=== PATIENT | female | born 1960 | race Caucasian/White ===

== ENCOUNTER 2019-03-29 04:21 | Inpatient (IN) | payer MEDICAID ==
[2019-03-29] VITALS (12 sets, daily range): BP systolic 100–115; BP diastolic 50–77
[~2019-03-29] VITALS: Ht 170.2 cm; Wt 79.3 kg
[2019-03-29] MEDS ORDERED: potassium Cl 40 mEq/NS 500ml IV ONE (04:50)
[2019-03-29] MEDS ORDERED: normal saline 1000ML IV soln IVB ONE ×2 (04:50→06:10)
--- NOTE | 2019-03-29 04:50 | NUR ---
CHEST X RAY COMPLETE
--- NOTE | 2019-03-29 04:50 | NUR ---
PT POTASSIUM LEVEL AT [facility] WAS AT 1. 9 .PT WAS SUPPOSE TO RECIEVE 4 K MENDOZA PRIOR TO TRANSPORT, BUT ONLY 2 WERE GIVEN . UPON ARRIVAL PT HAD ALOC. I STAT WAS PERFORMED FOR INTITAL POTASSIUM VALUE. RESULTS OF POTASSIUM LEVEL WAS ,2.[address] HARDWICK AWARE . PT CURRENTLY ON TLEMENTRY IN [facility]. HR 76 RR 19 UNLABORED, BP 103/56
[2019-03-29 04:53] LABS: BASOPHILS % (AUTO) 0.1 % (0-1); EOSINOPHILS % (AUTO) 0 % (0-6); HEMATOCRIT 37.3 % (35.0-45.0); HEMOGLOBIN 12.7 g/dl (12.0-16.0); LYMPHOCYTES # (AUTO) 1.1 X10'3 (1.1-4.8); LYMPHOCYTES % (AUTO) 5.4 % (21-51); MEAN CORPUSCULAR HEMOGLOBIN 27.8 PG (27.0-31.0); MEAN CORPUSCULAR HGB CONC 34.2 g/dL (33.0-36.5); MEAN CORPUSCULAR VOLUME 81.5 FL (78-98); MEAN PLATELET VOLUME 7.3 FL (7.4-10.4); MONOCYTES # (AUTO) 1.2 X10'3 (0-0.9); MONOCYTES % (AUTO) 5.6 % (2-12); NEUTROPHILS # (AUTO) 18.4 X10'3 (1.8-7.7); NEUTROPHILS % (AUTO) 88.9 % (42-75); PLATELET COUNT 251 X10'3 (140-440); RED BLOOD COUNT 4.57 X10'6 (4.20-5.60); RED CELL DISTRIBUTION WIDTH 15.8 % (11.5-14.5); WHITE BLOOD COUNT 20.7 X10'3 (4.5-11.0)
[2019-03-29 05:14] LABS: ALANINE AMINOTRANSFERASE 190 U/L (12-78); ALBUMIN 2.3 G/DL (3.4-5.0); ALKALINE PHOSPHATASE 216 IU/L (46-116); ASPARTATE AMINO TRANSFERASE 161 U/L (10-37); BILIRUBIN,TOTAL 7.8 MG/DL (0.1-1.0); BLOOD UREA NITROGEN 11 MG/DL (7-18); BUN/CREATININE RATIO 14.7 (6.6-38.0); CALCIUM 7.6 MG/DL (8.5-10.1); CREATININE 0.75 MG/DL (0.40-0.90); TROPONIN I < 0.04 NG/ML (0.0-0.05); eGFR 80 ML/MIN
[2019-03-29] MEDS: potassium Cl 10 mEq/100mL bag IV SCH ×4 (05:23→06:56)
[2019-03-29 05:33] LABS: PARTIAL THROMBOPLASTIN TIME 29 SECONDS (22-32)
[2019-03-29 05:38] LABS: ALBUMIN/GLOBULIN RATIO 0.5 (1.1-1.5); ANION GAP 23 (8-16); CHLORIDE 101 MMOL/L (99-107); GLUCOSE 81 MG/DL (70-104); SODIUM 142 MMOL/L (135-145); TOTAL PROTEIN 7.1 G/DL (6.4-8.2)
[2019-03-29] MEDS ORDERED: HYDR-3972 PO (05:38)
[2019-03-29] MEDS ORDERED: METH-603 PO (05:40)
[2019-03-29] MEDS ORDERED: NALO4SPR (05:40)
[2019-03-29] MEDS ORDERED: METO-292 PO (05:42)
[2019-03-29] MEDS ORDERED: AMIT25TA9 PO (05:42)
[2019-03-29 05:44] LABS: POTASSIUM 1.5 MMOL/L (3.5-5.1)
[2019-03-29] MEDS ORDERED: VENL150T3 PO (05:47)
[2019-03-29] MEDS ORDERED: PANT-47 PO (05:47)
[2019-03-29] MEDS ORDERED: ATOR20TA PO (05:47)
[2019-03-29] MEDS ORDERED: EST1T PO (05:47)
[2019-03-29] MEDS ORDERED: OXYB5TAB16 PO (05:47)
--- NOTE | 2019-03-29 05:49 | NUR ---
Spoke to pharmacist Natasha about patient's potassium level and how much potassium can be given through a PIV. She states that the patient can get two 10meq potassium in 100ml bags at the same time if given in 2 seperate PIVs on seperate sides of the body.
--- NOTE | 2019-03-29 06:14 | NUR ---
PT SLEEPING UNLABORED ON HER BACK ALL VSS IV SITES (3) TO UPPER ARMS / BILATERLY PATENT WITHOUT INCIDENT. MD GONZALEZ AWARE OF CRITICAL LAB VALUES.
--- NOTE | 2019-03-29 06:17 | NUR ---
PT ROOMMATE IS SHABANA @ [phone] GIVEN THIS CONTACT BY [facility]
--- NOTE | 2019-03-29 06:30 | NUR ---
BEDSIDE REPORT FROM ELIZABETH TELLO. PATIENT DOZING AND LETHARGIC. AROUSED TO VERBAL STIMULI. PATIENT ORIENTED X 1. UNABLE TO ANSWER QUESTIONS APPROPRIATELY. IV FLUIDS INFUSING WELL. VSS.
[2019-03-29 06:46] LABS: ISTAT ANION GAP 16 (8-12); ISTAT BUN 10 mg/dL (6-19); ISTAT CL 108 mmol/L (99-107); ISTAT CREATININE 0.6 mg/dL (0.6-1.1); ISTAT GLUCOSE 86 mg/dL (70-104); ISTAT HGB 12.9 g/dl (12.0-16.0); ISTAT Hct 38 %PCV (35-48); ISTAT NA 141 mmol/L (135-145); ISTAT TOTAL CO2 17 mmol/L (24-32); ISTAT eGFR > 90 ML/MIN; POC BUN/CREATININE RATIO 16.7 (6.6-38.0)
[2019-03-29 06:58] LABS: ISTAT K < 2.0 mmol/L (3.5-5.1)
[2019-03-29] MEDS ORDERED: magnesium 2GM in 50ml NS 50 ML IV ONE (07:10)
--- NOTE | 2019-03-29 07:31 | NUR ---
Guerrero cath inserted per MD order using 18Fr and 10cc balloon by student nurse with staff supervision.
[2019-03-29 07:47] LABS: CLARITY,URINE SLIGHTLY CLOUDY (Clear); COLOR,URINE YELLOW (Yellow); GLUCOSE, URINE NEGATIVE (Neg); KETONES,URINE NEGATIVE (Neg); LEUKOCYTE ESTERASE ,URINE SMALL (Neg); NITRITES, URINE POSITIVE (Neg); OCCULT BLOOD,URINE TRACE-INTACT (Neg); PH,URINE 6.5 (4.8-8.0); PROTEIN,URINE NEGATIVE (Neg)
[2019-03-29 07:53] LABS: UA COLLECTION TYPE FOLEY CATH
[2019-03-29 07:55] LABS: BACTERIA,URINE 1+ /HPF (Neg); SQUAMOUS EPITHELIAL CELL,UR FEW /LPF (FEW); WBC CLUMPS,URINE MODERATE /HPF (NEGATIVE); WBC,URINE TNTC /HPF (0-4)
[2019-03-29] MEDS ORDERED: acetaminophen 325mg tablet PO PRN ×2 (09:20)
[2019-03-29] MEDS ORDERED: ondansetron/PF 4mg/2ml inj IV PRN (09:20)
[2019-03-29] MEDS ORDERED: potassium Cl 20 mEq SR tablet PO PRN ×2 (09:20)
[2019-03-29] MEDS ORDERED: potassium CL 10mEq/100ml bag 100 ML IV PRN ×2 (09:20)
[2019-03-29] MEDS ORDERED: morphine 2 MG/ML inj. syringe IV PRN (09:20)
[2019-03-29] MEDS ORDERED: magnesium hydroxide 30ml (MOM) UD suspension PO PRN (09:20)
[2019-03-29] MEDS: normal saline 1000ml 1,000 ML IV SCH ×2 (10:32→17:15)
[2019-03-29 11:00] LABS: MAGNESIUM 2.1 MG/DL (1.5-2.4)
[2019-03-29 11:11] LABS: POTASSIUM 1.7 MMOL/L (3.5-5.1)
--- NOTE | 2019-03-29 11:20 | NUR ---
Received report from Derek.
--- NOTE | 2019-03-29 12:09 | NUR ---
Patient received from ER to room 2044. Patient unable to answer most questions but repeats she wants to go home and she needs water. When given small sips of water she chokes. Toothe[place] offered. Dr. Ward arrives to instruct to get a PICC line. Paged PICC nurse twice now, no response.
[2019-03-29] MEDS: lactulose 20gm/30ml cup PO SCH ×2 (12:16→20:30)
[2019-03-29] MEDS: CefTRIAXone/D5W-Rocephin 1gm 50 ML IV SCH (12:17)
--- NOTE | 2019-03-29 12:27 | NUR ---
Left a message with Michelle, patients sister. No answer.
--- NOTE | 2019-03-29 12:35 | NUR ---
Patient's sister, Stephany contacted hospital, she informed me that her sister used to use IV and smoking heroin. Patient is not a drinker, she currently uses marijuana and cigarettes smoking.
[2019-03-29] MEDS: azithromycin/NS 500mg/250ml 250 ML IV SCH (13:02)
--- NOTE | 2019-03-29 13:54 | NUR ---
Informed Dr. 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 Also, informed him that Hepatitis A,B,C is a send up and that it will not go out until tomorrow.
[2019-03-29] MEDS: potassium Cl 20mEq/100mL bag 100 ML IV PRN ×4 (14:39→19:38)
[2019-03-29 15:01] LABS: OXYGEN SATURATION (MIXED VEN) 75.7 % (60-80); PO2 MIXED VENOUS (TEMP COR) 39.2 mmHg (35-46)
[2019-03-29] MEDS: POTASSIUM BICARBONATE/CIT AC 10 MEQ TABLET.EFF PO SCH (15:07)
--- NOTE | 2019-03-29 18:39 | NUR ---
Problems reprioritized. Patient report given, questions answered & plan of care reviewed with Vincent Garrett RN. Still need SCD's, 1 more bag of 20meQKin NS, re check potassium, needs regular diet tray.
[2019-03-29] MEDS: metoclopramide 10mg tablet PO SCH (19:37)
[2019-03-29] MEDS: rifaximin 550mg tablet PO SCH (19:37)
[2019-03-29] MEDS: methadone 10mg tablet PO SCH (19:37)
[2019-03-29] MEDS: heparin, porcine 5000 units/ml vial SQ SCH (19:38)
[2019-03-29] MEDS ORDERED: VENLAFAXINE HCL PO SCH (20:00)
[2019-03-30] VITALS (24 sets, daily range): BP systolic 97–134; BP diastolic 46–81
--- NOTE | 2019-03-30 | NUR ---
Patient insisted on getting up to the "toilet" to have a bowel movement. Patient would not wait for staff to assist and climbed out of bed. Both RN and Sitter were there to assist. Patient having trouble following instructions. Patient safely to the bedside commode. When getting patient back to bed patient unable to follow instructions to sit down on the bed. After a few minutes patient finally able to sit down on the bed. Assisted back into bed. Sitter at bedside.
[2019-03-30] MEDS: POTASSIUM BICARBONATE/CIT AC 10 MEQ TABLET.EFF PO SCH ×3 (00:56→16:33)
[2019-03-30 02:56] LABS: BASOPHILS % (AUTO) 0.1 % (0-1); EOSINOPHILS % (AUTO) 0.1 % (0-6); HEMATOCRIT 30.1 % (35.0-45.0); HEMOGLOBIN 10.2 g/dl (12.0-16.0); MEAN CORPUSCULAR HEMOGLOBIN 27.9 PG (27.0-31.0); MEAN CORPUSCULAR HGB CONC 33.9 g/dL (33.0-36.5); MEAN CORPUSCULAR VOLUME 82.3 FL (78-98); MEAN PLATELET VOLUME 7.4 FL (7.4-10.4); MONOCYTES # (AUTO) 0.9 X10'3 (0-0.9); MONOCYTES % (AUTO) 7.7 % (2-12); NEUTROPHILS # (AUTO) 8.8 X10'3 (1.8-7.7); NEUTROPHILS % (AUTO) 75.1 % (42-75); PLATELET COUNT 194 X10'3 (140-440); RED BLOOD COUNT 3.66 X10'6 (4.20-5.60); RED CELL DISTRIBUTION WIDTH 15.9 % (11.5-14.5); WHITE BLOOD COUNT 11.7 X10'3 (4.5-11.0)
[2019-03-30 03:16] LABS: ALANINE AMINOTRANSFERASE 141 U/L (12-78); ALBUMIN 1.7 G/DL (3.4-5.0); ALKALINE PHOSPHATASE 159 IU/L (46-116); ANION GAP 9 (8-16); ASPARTATE AMINO TRANSFERASE 136 U/L (10-37); BILIRUBIN,TOTAL 3.7 MG/DL (0.1-1.0); BLOOD UREA NITROGEN 11 MG/DL (7-18); BUN/CREATININE RATIO 12.4 (6.6-38.0); CALCIUM 6.9 MG/DL (8.5-10.1); CHLORIDE 112 MMOL/L (99-107); CREATININE 0.89 MG/DL (0.40-0.90); MAGNESIUM 1.7 MG/DL (1.5-2.4); SODIUM 141 MMOL/L (135-145); TOTAL CARBON DIOXIDE 19.6 MMOL/L (24-32); eGFR 65 ML/MIN
[2019-03-30 03:23] LABS: ALBUMIN/GLOBULIN RATIO 0.4 (1.1-1.5); GLUCOSE 113 MG/DL (70-104); TOTAL PROTEIN 5.6 G/DL (6.4-8.2)
[2019-03-30 03:25] LABS: POTASSIUM 2.6 MMOL/L (3.5-5.1)
[2019-03-30] MEDS: normal saline 1000ml 1,000 ML IV SCH ×2 (03:29→21:09)
[2019-03-30] MEDS: potassium Cl 20mEq/100mL bag 100 ML IV PRN ×5 (03:30→11:19)
[2019-03-30] MEDS ORDERED: sodium phosphate inj. 30 MMOL in dextrose 5%-water 250 ML IV ONE (03:35)
[2019-03-30] MEDS: pantoprazole 40mg Tablet.DR PO SCH (08:56)
[2019-03-30] MEDS: rifaximin 550mg tablet PO SCH ×2 (08:57→21:10)
[2019-03-30] MEDS: atorvastatin 20mg tablet PO SCH (08:57)
[2019-03-30] MEDS: venlafaxine XR 75mg capsule (Q24H) PO SCH ×2 (08:57→21:11)
[2019-03-30] MEDS: oxybutynin 5mg tablet PO SCH (08:58)
[2019-03-30] MEDS: metoclopramide 10mg tablet PO SCH ×2 (08:58→21:10)
[2019-03-30] MEDS: CefTRIAXone/D5W-Rocephin 1gm 50 ML IV SCH (08:58)
[2019-03-30] MEDS: azithromycin/NS 500mg/250ml 250 ML IV SCH (08:58)
[2019-03-30] MEDS: lactulose 20gm/30ml cup PO SCH ×3 (08:59→21:11)
[2019-03-30] MEDS: amitriptyline 25mg tablet PO SCH (08:59)
[2019-03-30] MEDS: estradiol 1mg tablet PO SCH (08:59)
[2019-03-30] MEDS: methadone 10mg tablet PO SCH ×2 (08:59→21:10)
[2019-03-30] MEDS: heparin, porcine 5000 units/ml vial SQ SCH ×2 (09:04→21:11)
[2019-03-30 11:11] LABS: ALBUMIN 1.8 G/DL (3.4-5.0); ANION GAP 13 (8-16); BLOOD UREA NITROGEN 8 MG/DL (7-18); BUN/CREATININE RATIO 9.4 (6.6-38.0); CALCIUM 6.4 MG/DL (8.5-10.1); CHLORIDE 107 MMOL/L (99-107); CREATININE 0.85 MG/DL (0.40-0.90); GLUCOSE 173 MG/DL (70-104); SODIUM 137 MMOL/L (135-145); TOTAL CARBON DIOXIDE 16.6 MMOL/L (24-32); eGFR 69 ML/MIN
[2019-03-30 11:15] LABS: POTASSIUM 2.7 MMOL/L (3.5-5.1)
--- NOTE | 2019-03-30 11:29 | NUR ---
Malnutrition consult, patient admitted with ALOC, UTI. Low potassium 2.7 and phosphorus 1 L, aware and is receiving replacement. Patient reports unsure of any recent weight loss. No edema. No prior admission, unable to obtain weight history from patient d/t her confusion. Appears to have good appetite, ate 75% of dinner. Observed patient sitting in bed, appears well nourished. no malnutrition at this time. Will continue to follow. Addendum: 03/30/19 at [address] Amended: Links added.
--- NOTE | 2019-03-30 18:50 | NUR ---
Patient in room ICU 2044. I have received report from ELIZABETH Najera and had the opportunity to ask questions and assume patient care. Patient attempting to get out of bed with rails up. Bed alarm is set. Sitter requested. Patient is oriented to person only
--- NOTE | 2019-03-30 21:00 | NUR ---
[id number]: Patient becoming more agitated and resistant to care. Patient not making sense stating " I need to go to the hotel." " I need to go to [employer]." " I need to go to the doctor." Patient attempting to get out of bed and resisting staff efforts to keep her safe. Patient is not very sturdy on her feet and is a fall risk. Patient proceeded to pull at her gown and her lines. greige goods marker, tech and sitter and RN at bedside. Patient becoming combative, attempting to kick and swing at staff. June BEATRICE Campbell notified of change in patients condition. Order for Ativan 1 mg entered by Treasure Campbell NP. Patient continued to fight with staff and remained a danger to herself. Patient appeared generally uncomfortable. Pain medication Morphine administered as ordered for pain. By 2199 patient able to be assisted back to bed. Patient sleeping soundly. Sitter remained at bedside will continue to monitor patient.
[2019-03-30] MEDS: lactobacillus rhamnosus 10,000 MMU CELLS/CAPSULE PO SCH (21:09)
[2019-03-30] MEDS ORDERED: LORazepam 2 mg/ml vial IV ONE (21:15)
[2019-03-30] MEDS: morphine 4 MG/ML inj SYRINge IV PRN (21:38)
[2019-03-31] VITALS (22 sets, daily range): BP systolic 98–137; BP diastolic 61–85
--- NOTE | 2019-03-31 | NUR ---
Patient able to awaken to verbal stimuli. Patient opens her eyes but does not answer questions. Patient follows simple commands to raise hands and cough to clear her throat. Patient dozes off quickly. Patient is unable to drink her potassium replacement. June BEATRICE Campbell notified of patients condition. labs drawn and sent to check potassium and ammonia levels.
[2019-03-31] MEDS: POTASSIUM BICARBONATE/CIT AC 10 MEQ TABLET.EFF PO SCH ×4 (00:57→16:28)
[2019-03-31 01:40] LABS: BASOPHILS % (AUTO) 0.1 % (0-1); EOSINOPHILS % (AUTO) 0 % (0-6); HEMATOCRIT 31.9 % (35.0-45.0); HEMOGLOBIN 10.8 g/dl (12.0-16.0); LYMPHOCYTES # (AUTO) 2.3 X10'3 (1.1-4.8); LYMPHOCYTES % (AUTO) 19.7 % (21-51); MEAN CORPUSCULAR HEMOGLOBIN 27.5 PG (27.0-31.0); MEAN CORPUSCULAR HGB CONC 33.7 g/dL (33.0-36.5); MEAN CORPUSCULAR VOLUME 81.6 FL (78-98); MEAN PLATELET VOLUME 7.3 FL (7.4-10.4); MONOCYTES # (AUTO) 0.9 X10'3 (0-0.9); MONOCYTES % (AUTO) 7.6 % (2-12); NEUTROPHILS # (AUTO) 8.7 X10'3 (1.8-7.7); NEUTROPHILS % (AUTO) 72.6 % (42-75); PLATELET COUNT 225 X10'3 (140-440); RED BLOOD COUNT 3.91 X10'6 (4.20-5.60); RED CELL DISTRIBUTION WIDTH 16.2 % (11.5-14.5); WHITE BLOOD COUNT 11.9 X10'3 (4.5-11.0)
[2019-03-31 01:58] LABS: ALANINE AMINOTRANSFERASE 165 U/L (12-78); ALBUMIN 1.8 G/DL (3.4-5.0); ALKALINE PHOSPHATASE 176 IU/L (46-116); ANION GAP 10 (8-16); ASPARTATE AMINO TRANSFERASE 192 U/L (10-37); BILIRUBIN,TOTAL 3.6 MG/DL (0.1-1.0); BLOOD UREA NITROGEN 7 MG/DL (7-18); BUN/CREATININE RATIO 9.1 (6.6-38.0); CALCIUM 7.3 MG/DL (8.5-10.1); CHLORIDE 107 MMOL/L (99-107); CREATININE 0.77 MG/DL (0.40-0.90); MAGNESIUM 1.6 MG/DL (1.5-2.4); POTASSIUM 3.6 MMOL/L (3.5-5.1); SODIUM 137 MMOL/L (135-145); TOTAL CARBON DIOXIDE 19.7 MMOL/L (24-32); eGFR 77 ML/MIN
[2019-03-31 02:31] LABS: ALBUMIN/GLOBULIN RATIO 0.4 (1.1-1.5); GLUCOSE 86 MG/DL (70-104); PHOSPHORUS 1.6 MG/DL (2.3-4.5); TOTAL PROTEIN 6.1 G/DL (6.4-8.2)
[2019-03-31] MEDS ORDERED: potassium Cl 20mEq/100mL bag 100 ML IV ONE (02:55)
--- NOTE | 2019-03-31 03:00 | NUR ---
June BEATRICE Campbell notified of potassium level of 3.6. Order to be placed for potassium replacement since patient was unable to take oral dose of potassium.
[2019-03-31] MEDS: normal saline 1000ml 1,000 ML IV SCH ×2 (03:15→14:22)
--- NOTE | 2019-03-31 06:00 | NUR ---
[id number]: Patient able to awaken easily to verbal stimuli. Patient able to state first name and follow commands to roll in bed for a bed change.
--- NOTE | 2019-03-31 06:30 | NUR ---
Problems reprioritized. Patient report given, questions answered & plan of care reviewed with ELIZABETH Najera.
[2019-03-31] MEDS: potassium Cl 20mEq/100mL bag 100 ML IV PRN ×3 (06:48→10:31)
[2019-03-31] MEDS: methadone 10mg tablet PO SCH ×3 (08:00→20:21)
[2019-03-31] MEDS: metoclopramide 10mg tablet PO SCH ×3 (08:00→20:21)
[2019-03-31] MEDS: venlafaxine XR 75mg capsule (Q24H) PO SCH ×3 (08:00→20:21)
[2019-03-31] MEDS: rifaximin 550mg tablet PO SCH ×3 (08:00→23:35)
[2019-03-31] MEDS: oxybutynin 5mg tablet PO SCH ×2 (08:00→08:19)
[2019-03-31] MEDS: estradiol 1mg tablet PO SCH ×2 (08:00→08:20)
[2019-03-31] MEDS: pantoprazole 40mg Tablet.DR PO SCH ×2 (08:00→08:21)
[2019-03-31] MEDS: amitriptyline 25mg tablet PO SCH ×2 (08:00→08:19)
[2019-03-31] MEDS: lactobacillus rhamnosus 10,000 MMU CELLS/CAPSULE PO SCH ×3 (08:00→20:21)
[2019-03-31] MEDS: atorvastatin 20mg tablet PO SCH ×2 (08:00→08:19)
[2019-03-31] MEDS: CefTRIAXone/D5W-Rocephin 1gm 50 ML IV SCH (08:15)
[2019-03-31] MEDS: azithromycin/NS 500mg/250ml 250 ML IV SCH (08:19)
[2019-03-31] MEDS ORDERED: dextrose 50%-water 50ml dispensing syringe IV ONE ×2 (08:34→09:30)
[2019-03-31] MEDS ORDERED: cefepime 1GM in D5W 50mL 50 ML IV SCH (11:20)
[2019-03-31 11:26] LABS: HBSAG SCREEN Positive (Negative); HEP A AB, IGM Negative (Negative); HEPATITIS C ANTIBODY <0.1 s/co ratio (0.0-0.9)
[2019-03-31] MEDS: cefepime 1GM/NS ADD-VANTAGE 100 ML IV SCH ×2 (11:56→17:45)
[2019-03-31] MEDS: lactulose 20gm/30ml cup PO SCH ×2 (13:00→20:21)
[2019-03-31] MEDS ORDERED: ipratropium/albuterol 3ml nebule NEB PRN (15:00)
[2019-03-31] MEDS: ipratropium/albuterol 3ml nebule NEB SCH ×2 (15:00→20:34)
--- NOTE | 2019-03-31 15:31 | NUR ---
TF consult: Pending Corpak placement. Per MD notes pt not eating, somnolent, and still encephalopathic even with improved ammonia. Pt confused and A/O x 1 per physical assessment. Noted that pt documented with average 25% PO intake not meeting nutrient needs. TF recommendations calculated to meet 100% of patient's estimated nutrient needs once at goal rate. Per RN MD would like pt to continue NPO with TF as sole source of nutrition at this time. LBM 03/31. Will continue to follow. Recommendations: 1) Once Corpak placed and confirmed in appropriate location, continuous Jevity 1.2 with goal rate of 75 mL/hr to provide: total volume 1800 mL/day, 2160 kcal, 100 g protein, and 1453 mL water 2) Additional 200 mL water flush Q4H 3) Prealbumin q /; daily weights 4) Diet advancement as medically indicated to heart healthy Addendum: 03/31/19 at [address] Amended: Links added.
[2019-03-31] MEDS: heparin, porcine 5000 units/ml vial SQ SCH (20:21)
[2019-03-31] MEDS: HYDROcodone/acetaminophen 10/325mg tab PO PRN (23:36)
[2019-04-01] VITALS (17 sets, daily range): BP systolic 94–125; BP diastolic 62–84
[2019-04-01] MEDS: POTASSIUM BICARBONATE/CIT AC 10 MEQ TABLET.EFF PO SCH ×4 (00:23→23:45)
[2019-04-01] MEDS: cefepime 1GM/NS ADD-VANTAGE 100 ML IV SCH ×4 (00:23→23:45)
--- NOTE | 2019-04-01 01:00 | NUR ---
RN Note -MD Communication Called June aleksandar Campbell combative and climbing out of bed. Orders received.
[2019-04-01] MEDS ORDERED: ziprasidone IM 20mg inj **IM only IM ONE (01:05)
[2019-04-01] MEDS: ipratropium/albuterol 3ml nebule NEB SCH ×4 (02:15→21:10)
[2019-04-01 03:10] LABS: BASOPHILS % (AUTO) 0.1 % (0-1); EOSINOPHILS % (AUTO) 0 % (0-6); HEMOGLOBIN 10.5 g/dl (12.0-16.0); LYMPHOCYTES # (AUTO) 2.2 X10'3 (1.1-4.8); MEAN CORPUSCULAR HEMOGLOBIN 27.9 PG (27.0-31.0); MEAN CORPUSCULAR HGB CONC 33.7 g/dL (33.0-36.5); MEAN CORPUSCULAR VOLUME 82.7 FL (78-98); MEAN PLATELET VOLUME 7.9 FL (7.4-10.4); MONOCYTES # (AUTO) 0.6 X10'3 (0-0.9); MONOCYTES % (AUTO) 8.8 % (2-12); NEUTROPHILS # (AUTO) 4.5 X10'3 (1.8-7.7); NEUTROPHILS % (AUTO) 61.1 % (42-75); PLATELET COUNT 181 X10'3 (140-440); RED BLOOD COUNT 3.75 X10'6 (4.20-5.60); RED CELL DISTRIBUTION WIDTH 16.3 % (11.5-14.5); WHITE BLOOD COUNT 7.3 X10'3 (4.5-11.0)
[2019-04-01 03:29] LABS: ALANINE AMINOTRANSFERASE 162 U/L (12-78); ALBUMIN 1.8 G/DL (3.4-5.0); ALBUMIN/GLOBULIN RATIO 0.4 (1.1-1.5); ALKALINE PHOSPHATASE 163 IU/L (46-116); ANION GAP 8 (8-16); ASPARTATE AMINO TRANSFERASE 183 U/L (10-37); BILIRUBIN,TOTAL 2.9 MG/DL (0.1-1.0); BLOOD UREA NITROGEN 6 MG/DL (7-18); BUN/CREATININE RATIO 8.3 (6.6-38.0); CALCIUM 7.2 MG/DL (8.5-10.1); CHLORIDE 111 MMOL/L (99-107); CREATININE 0.72 MG/DL (0.40-0.90); MAGNESIUM 1.5 MG/DL (1.5-2.4); PHOSPHORUS 2.7 MG/DL (2.3-4.5); SODIUM 138 MMOL/L (135-145); TOTAL CARBON DIOXIDE 18.7 MMOL/L (24-32); TOTAL PROTEIN 6.2 G/DL (6.4-8.2); eGFR 83 ML/MIN
[2019-04-01 03:40] LABS: GLUCOSE 74 MG/DL (70-104)
[2019-04-01] MEDS: pantoprazole 40mg Tablet.DR PO SCH (10:56)
[2019-04-01] MEDS: lactulose 20gm/30ml cup PO SCH ×3 (10:56→22:17)
[2019-04-01] MEDS: atorvastatin 20mg tablet PO SCH (10:56)
[2019-04-01] MEDS: amitriptyline 25mg tablet PO SCH (10:56)
[2019-04-01] MEDS: metoclopramide 10mg tablet PO SCH ×2 (11:02→19:31)
[2019-04-01] MEDS: methadone 10mg tablet PO SCH ×2 (11:02→19:31)
[2019-04-01] MEDS: venlafaxine XR 75mg capsule (Q24H) PO SCH ×2 (11:18→22:17)
[2019-04-01] MEDS: lactobacillus rhamnosus 10,000 MMU CELLS/CAPSULE PO SCH ×2 (11:18→19:31)
[2019-04-01] MEDS: oxybutynin 5mg tablet PO SCH (11:19)
[2019-04-01] MEDS: normal saline 1000ml 1,000 ML IV SCH ×2 (11:20→19:41)
--- NOTE | 2019-04-01 11:42 | NUR ---
reassessment: Pt immediately pulled corpak and has been advanced to pureed diet per RN. No BSS at this time; RD recommends SP BSS for proper recs. Pt AOx1 falls asleep w/ food in mouth and requires feeder per RN. PO 25% first meals improved to 100% breakfast today per RN. LBM 03/31. Will monitor for SP diet recs and PO tolerance. Recommendations: 1) advancement diet per SP/MD to heart healthy 2) monitor for PO tolerance w/ feeder and subsequent ONS needs 3) routine bowel care 4) wt per rx Addendum: 04/01/19 at [address] Amended: Links added.
[2019-04-01] MEDS: heparin, porcine 5000 units/ml vial SQ SCH ×2 (11:53→19:32)
[2019-04-01] MEDS: estradiol 1mg tablet PO SCH (14:00)
--- NOTE | 2019-04-01 16:24 | NUR ---
Sister Michelle to visit: requests social professionals assistance at discharge. Current living situation is unacceptable to the family. Family will be in on Tuesday to speak to case management.
--- NOTE | 2019-04-01 17:51 | NUR ---
Patient in room CICU 2009. I have received report from Pushpa JOHNSON and had the opportunity to ask questions and assume patient care.
--- NOTE | 2019-04-01 18:05 | NUR ---
Patient received from CICU. Patient oriented to room and call light and sitter. Patient stable, fluids running.
--- NOTE | 2019-04-01 18:27 | NUR ---
Patient report given, questions answered & plan of care reviewed with Sarah JOHNSON. Patient stable at time of transfer of care.
[2019-04-01] MEDS: morphine 4 MG/ML inj SYRINge IV PRN (19:32)
--- NOTE | 2019-04-01 21:45 | NUR ---
Patient in room PCU 3019. I have received report from ELIZABETH Pan and had the opportunity to ask questions and assume patient care. Addendum: 04/01/19 at 2147 by Sarah Constantino RN Amended: Links added.
[2019-04-01] MEDS: HYDROcodone/acetaminophen 10/325mg tab PO PRN (22:18)
[2019-04-02 02:00] VITALS: BP 128/82
[2019-04-02] MEDS: ipratropium/albuterol 3ml nebule NEB SCH ×4 (02:38→20:41)
[2019-04-02 05:26] LABS: BASOPHILS % (AUTO) 0.1 % (0-1); EOSINOPHILS % (AUTO) 0.1 % (0-6); HEMATOCRIT 30.9 % (35.0-45.0); HEMOGLOBIN 10.6 g/dl (12.0-16.0); LYMPHOCYTES # (AUTO) 1.9 X10'3 (1.1-4.8); MEAN CORPUSCULAR HEMOGLOBIN 28.5 PG (27.0-31.0); MEAN CORPUSCULAR HGB CONC 34.4 g/dL (33.0-36.5); MEAN CORPUSCULAR VOLUME 82.8 FL (78-98); MEAN PLATELET VOLUME 8.1 FL (7.4-10.4); MONOCYTES # (AUTO) 0.8 X10'3 (0-0.9); MONOCYTES % (AUTO) 12.5 % (2-12); NEUTROPHILS # (AUTO) 3.7 X10'3 (1.8-7.7); NEUTROPHILS % (AUTO) 57.3 % (42-75); PLATELET COUNT 176 X10'3 (140-440); RED BLOOD COUNT 3.74 X10'6 (4.20-5.60); RED CELL DISTRIBUTION WIDTH 16.1 % (11.5-14.5); WHITE BLOOD COUNT 6.4 X10'3 (4.5-11.0)
[2019-04-02 05:55] LABS: ALANINE AMINOTRANSFERASE 179 U/L (12-78); ALBUMIN 1.9 G/DL (3.4-5.0); ALBUMIN/GLOBULIN RATIO 0.4 (1.1-1.5); ALKALINE PHOSPHATASE 171 IU/L (46-116); ANION GAP 9 (8-16); ASPARTATE AMINO TRANSFERASE 222 U/L (10-37); BILIRUBIN,TOTAL 3.2 MG/DL (0.1-1.0); BLOOD UREA NITROGEN 7 MG/DL (7-18); BUN/CREATININE RATIO 9.5 (6.6-38.0); CALCIUM 7.8 MG/DL (8.5-10.1); CHLORIDE 112 MMOL/L (99-107); CREATININE 0.74 MG/DL (0.40-0.90); MAGNESIUM 1.5 MG/DL (1.5-2.4); PHOSPHORUS 3.7 MG/DL (2.3-4.5); POTASSIUM 3.9 MMOL/L (3.5-5.1); SODIUM 142 MMOL/L (135-145); TOTAL CARBON DIOXIDE 21.4 MMOL/L (24-32); TOTAL PROTEIN 6.7 G/DL (6.4-8.2); eGFR 81 ML/MIN
[2019-04-02 06:00] VITALS: BP 119/76
--- NOTE | 2019-04-02 06:12 | NUR ---
Problems reprioritized. Patient report given, questions answered & plan of care reviewed with ELIZABETH Logan. Addendum: 04/02/19 at 0612 by Sarah Constantino RN Amended: Links added.
[2019-04-02 06:13] LABS: GLUCOSE 73 MG/DL (70-104)
--- NOTE | 2019-04-02 06:27 | NUR ---
Patient in room PCU 3019. I have received report from Serena JOHNSON and had the opportunity to ask questions and assume patient care.
[2019-04-02] MEDS: POTASSIUM BICARBONATE/CIT AC 10 MEQ TABLET.EFF PO SCH ×3 (08:00→23:52)
[2019-04-02] MEDS: lactulose 20gm/30ml cup PO SCH ×3 (08:28→20:22)
[2019-04-02] MEDS: amitriptyline 25mg tablet PO SCH (08:29)
[2019-04-02] MEDS: oxybutynin 5mg tablet PO SCH (08:29)
[2019-04-02] MEDS: methadone 10mg tablet PO SCH ×2 (08:29→20:22)
[2019-04-02] MEDS: pantoprazole 40mg Tablet.DR PO SCH (08:29)
[2019-04-02] MEDS: atorvastatin 20mg tablet PO SCH (08:29)
[2019-04-02] MEDS: heparin, porcine 5000 units/ml vial SQ SCH ×2 (08:29→20:22)
[2019-04-02] MEDS: lactobacillus rhamnosus 10,000 MMU CELLS/CAPSULE PO SCH ×2 (08:29→20:22)
[2019-04-02] MEDS: metoclopramide 10mg tablet PO SCH ×2 (08:30→20:22)
--- NOTE | 2019-04-02 09:11 | NUR ---
Patient report given, questions answered & plan of care reviewed with Dane JOHNSON. Patient stable at time of transfer of care.
--- NOTE | 2019-04-02 09:17 | NUR ---
[place]rient[place] documentation: I have reviewed and agree with all interventions, assessments performed and documented by Doreen JOHNSON. [place] Medication Administration: For this medication-pass time frame, all medication were reviewed, dispensed, administered and documented per hospital policy by Doreen JOHNSON.
[2019-04-02] MEDS: venlafaxine XR 75mg capsule (Q24H) PO SCH ×2 (10:45→20:22)
[2019-04-02 11:00] VITALS: BP 109/69
[2019-04-02] MEDS: cefepime 1GM/NS ADD-VANTAGE 100 ML IV SCH ×3 (11:04→23:52)
[2019-04-02] MEDS: estradiol 1mg tablet PO SCH (11:04)
[2019-04-02] MEDS ORDERED: potassium Cl 20 mEq SR tablet PO PRN (13:25)
[2019-04-02] MEDS: potassium Cl 20 mEq SR tablet PO PRN ×2 (14:08→17:51)
[2019-04-02 15:00] VITALS: BP 102/74
--- NOTE | 2019-04-02 15:57 | NUR ---
Orientee documentation and med administration: I have reviewed and agree with all interventions, assessments performed and documented by Jessica JOHNSON.
[2019-04-02] MEDS: normal saline 1000ml 1,000 ML IV SCH (16:08)
[2019-04-02 18:00] VITALS: BP 108/63
--- NOTE | 2019-04-02 18:30 | NUR ---
Patient in room PCU 3019. I have received report from ELIZABETH DÍAZ AND ELIZABETH CORDOBA and had the opportunity to ask questions and assume patient care.
--- NOTE | 2019-04-02 18:52 | NUR ---
Problems reprioritized. Patient report given, questions answered & plan of care reviewed with ELIZABETH Haddad.
[2019-04-02 22:00] VITALS: BP 106/73
[2019-04-03] MEDS: ipratropium/albuterol 3ml nebule NEB SCH ×4 (02:34→20:25)
[2019-04-03 03:16] VITALS: BP 116/73
[2019-04-03 05:45] LABS: BASOPHILS % (AUTO) 0.1 % (0-1); EOSINOPHILS % (AUTO) 0.2 % (0-6); HEMATOCRIT 28.2 % (35.0-45.0); HEMOGLOBIN 9.6 g/dl (12.0-16.0); LYMPHOCYTES # (AUTO) 1.5 X10'3 (1.1-4.8); LYMPHOCYTES % (AUTO) 30.8 % (21-51); MEAN CORPUSCULAR HEMOGLOBIN 28.3 PG (27.0-31.0); MEAN CORPUSCULAR HGB CONC 34.2 g/dL (33.0-36.5); MEAN CORPUSCULAR VOLUME 82.8 FL (78-98); MEAN PLATELET VOLUME 7.9 FL (7.4-10.4); MONOCYTES # (AUTO) 0.7 X10'3 (0-0.9); MONOCYTES % (AUTO) 13.5 % (2-12); NEUTROPHILS # (AUTO) 2.8 X10'3 (1.8-7.7); NEUTROPHILS % (AUTO) 55.4 % (42-75); PLATELET COUNT 142 X10'3 (140-440); RED CELL DISTRIBUTION WIDTH 16.1 % (11.5-14.5)
[2019-04-03 06:00] VITALS: BP 119/69
[2019-04-03 06:30] LABS: ALANINE AMINOTRANSFERASE 174 U/L (12-78); ALBUMIN 1.8 G/DL (3.4-5.0); ALBUMIN/GLOBULIN RATIO 0.4 (1.1-1.5); ALKALINE PHOSPHATASE 161 IU/L (46-116); ANION GAP 8 (8-16); ASPARTATE AMINO TRANSFERASE 215 U/L (10-37); BILIRUBIN,TOTAL 2.7 MG/DL (0.1-1.0); BLOOD UREA NITROGEN 6 MG/DL (7-18); CALCIUM 8.3 MG/DL (8.5-10.1); CHLORIDE 112 MMOL/L (99-107); CREATININE 0.67 MG/DL (0.40-0.90); MAGNESIUM 1.6 MG/DL (1.5-2.4); PHOSPHORUS 2.3 MG/DL (2.3-4.5); POTASSIUM 4.1 MMOL/L (3.5-5.1); SODIUM 142 MMOL/L (135-145); TOTAL CARBON DIOXIDE 22.3 MMOL/L (24-32); TOTAL PROTEIN 6.5 G/DL (6.4-8.2); eGFR > 90 ML/MIN
[2019-04-03 06:36] LABS: GLUCOSE 72 MG/DL (70-104)
--- NOTE | 2019-04-03 06:38 | NUR ---
Problems reprioritized. Patient report given, questions answered & plan of care reviewed with ELIZABETH ANTON.
[2019-04-03] MEDS: lactulose 20gm/30ml cup PO SCH ×3 (08:00→20:11)
[2019-04-03] MEDS: heparin, porcine 5000 units/ml vial SQ SCH ×2 (08:56→20:12)
[2019-04-03] MEDS: atorvastatin 20mg tablet PO SCH (08:56)
[2019-04-03] MEDS: lactobacillus rhamnosus 10,000 MMU CELLS/CAPSULE PO SCH ×2 (08:56→20:11)
[2019-04-03] MEDS: amitriptyline 25mg tablet PO SCH (08:56)
[2019-04-03] MEDS: oxybutynin 5mg tablet PO SCH (08:56)
[2019-04-03] MEDS: venlafaxine XR 75mg capsule (Q24H) PO SCH ×2 (08:56→20:10)
[2019-04-03] MEDS: pantoprazole 40mg Tablet.DR PO SCH (08:57)
[2019-04-03] MEDS: metoclopramide 10mg tablet PO SCH ×2 (08:57→20:10)
[2019-04-03] MEDS: methadone 10mg tablet PO SCH ×2 (08:57→20:10)
[2019-04-03] MEDS: estradiol 1mg tablet PO SCH (08:58)
[2019-04-03] MEDS: POTASSIUM BICARBONATE/CIT AC 10 MEQ TABLET.EFF PO SCH ×2 (08:59→16:36)
[2019-04-03] MEDS: cefepime 1GM/NS ADD-VANTAGE 100 ML IV SCH ×2 (09:01→16:36)
[2019-04-03 11:00] VITALS: BP 103/66
--- NOTE | 2019-04-03 11:56 | NUR ---
reassessment: Pt AOx1 frequently falling asleep per EMR. PO 25-50% pureed/thin liquids decreased from 100% first meal following pt pulling out corpak. Ensure pudding BIDBD and magic cup w/ lunches added to meals; dietary notified. [facility] 03/31. Will continue to monitor. Recommendations: 1) continue pureed/thin liquids per SP/MD 2) ensure pudding BIDBD and magic cup w/ lunches 3) routine bowel care 4) wt per rx Addendum: 04/03/19 at [address] Amended: Links added.
[2019-04-03 15:00] VITALS: BP 112/67
[2019-04-03 18:00] VITALS: BP 107/72
--- NOTE | 2019-04-03 18:42 | NUR ---
Problems reprioritized. Patient report given, questions answered & plan of care reviewed with ELIZABETH Joya and ELIZABETH Angulo.
[2019-04-03] MEDS: normal saline 1000ml 1,000 ML IV SCH (20:33)
[2019-04-03 22:00] VITALS: BP 90/56
[2019-04-04] MEDS: cefepime 1GM/NS ADD-VANTAGE 100 ML IV SCH ×4 (00:34→23:11)
[2019-04-04] MEDS: POTASSIUM BICARBONATE/CIT AC 10 MEQ TABLET.EFF PO SCH ×4 (00:41→23:12)
[2019-04-04 02:00] VITALS: BP 103/71
[2019-04-04] MEDS: ipratropium/albuterol 3ml nebule NEB SCH ×3 (03:00→13:59)
[2019-04-04 03:55] LABS: BASOPHILS % (AUTO) 0.1 % (0-1); EOSINOPHILS % (AUTO) 0 % (0-6); HEMOGLOBIN 9.6 g/dl (12.0-16.0); LYMPHOCYTES # (AUTO) 1.6 X10'3 (1.1-4.8); MEAN CORPUSCULAR HEMOGLOBIN 28.3 PG (27.0-31.0); MEAN CORPUSCULAR HGB CONC 34.2 g/dL (33.0-36.5); MEAN CORPUSCULAR VOLUME 82.7 FL (78-98); MEAN PLATELET VOLUME 7.9 FL (7.4-10.4); MONOCYTES # (AUTO) 0.7 X10'3 (0-0.9); MONOCYTES % (AUTO) 13.2 % (2-12); NEUTROPHILS % (AUTO) 55.7 % (42-75); PLATELET COUNT 142 X10'3 (140-440); RED BLOOD COUNT 3.39 X10'6 (4.20-5.60); RED CELL DISTRIBUTION WIDTH 16.4 % (11.5-14.5); WHITE BLOOD COUNT 5.3 X10'3 (4.5-11.0)
[2019-04-04 04:04] LABS: ALANINE AMINOTRANSFERASE 204 U/L (12-78); ALBUMIN 1.8 G/DL (3.4-5.0); ALBUMIN/GLOBULIN RATIO 0.4 (1.1-1.5); ALKALINE PHOSPHATASE 162 IU/L (46-116); ANION GAP 5 (8-16); ASPARTATE AMINO TRANSFERASE 277 U/L (10-37); BILIRUBIN,TOTAL 2.4 MG/DL (0.1-1.0); BLOOD UREA NITROGEN 5 MG/DL (7-18); BUN/CREATININE RATIO 7.4 (6.6-38.0); CALCIUM 7.7 MG/DL (8.5-10.1); CHLORIDE 105 MMOL/L (99-107); CREATININE 0.68 MG/DL (0.40-0.90); MAGNESIUM 1.3 MG/DL (1.5-2.4); PHOSPHORUS 2.8 MG/DL (2.3-4.5); POTASSIUM 4.2 MMOL/L (3.5-5.1); SODIUM 135 MMOL/L (135-145); TOTAL CARBON DIOXIDE 25.5 MMOL/L (24-32); TOTAL PROTEIN 6.6 G/DL (6.4-8.2); eGFR 89 ML/MIN
[2019-04-04 04:05] LABS: GLUCOSE 76 MG/DL (70-104)
--- NOTE | 2019-04-04 05:33 | NUR ---
Patient in room PCU 3019. I have received report from Janis JOHNSON and had the opportunity to ask questions and assume patient care.
[2019-04-04 06:00] VITALS: BP 96/60
--- NOTE | 2019-04-04 06:00 | NUR ---
[place] Medication Administration: For this medication-pass time frame, all medication were reviewed, dispensed, administered and documented per hospital policy by Adele JOHNSON. Orientee documentation: I have reviewed interventions, assessments performed and documented by Adele JOHNSON.
--- NOTE | 2019-04-04 06:15 | NUR ---
Problems reprioritized. Patient report given, questions answered & plan of care reviewed with Janis RN.
--- NOTE | 2019-04-04 06:23 | NUR ---
Patient in room PCU 3019. I have received report from ELIZABETH Joya and had the opportunity to ask questions and assume patient care. Pt is sleeping. Per noc shift, the pt was encephalopathic last night. Will continue lactulose, and will ask about a rectal tube. Will continue to monitor and assess.
[2019-04-04] MEDS: venlafaxine XR 75mg capsule (Q24H) PO SCH ×2 (08:56→20:38)
[2019-04-04] MEDS: lactulose 20gm/30ml cup PO SCH ×3 (08:56→20:38)
[2019-04-04] MEDS: atorvastatin 20mg tablet PO SCH (08:57)
[2019-04-04] MEDS: amitriptyline 25mg tablet PO SCH (08:57)
[2019-04-04] MEDS: pantoprazole 40mg Tablet.DR PO SCH (08:57)
[2019-04-04] MEDS: heparin, porcine 5000 units/ml vial SQ SCH ×2 (08:57→20:39)
[2019-04-04] MEDS: metoclopramide 10mg tablet PO SCH ×2 (08:57→20:39)
[2019-04-04] MEDS: lactobacillus rhamnosus 10,000 MMU CELLS/CAPSULE PO SCH ×2 (08:57→20:38)
[2019-04-04] MEDS: methadone 10mg tablet PO SCH ×2 (08:57→20:39)
[2019-04-04] MEDS: oxybutynin 5mg tablet PO SCH (08:57)
[2019-04-04] MEDS: estradiol 1mg tablet PO SCH (08:57)
[2019-04-04 11:00] VITALS: BP 94/52
[2019-04-04 15:00] VITALS: BP 112/81
[2019-04-04] MEDS: nicotine 21mg patch - 24 hr TD SCH (17:25)
[2019-04-04 18:00] VITALS: BP 91/55
--- NOTE | 2019-04-04 18:11 | NUR ---
Pt was getting slightly agitated, wanting to smoke a cigarette. She was given a nicotine patch, however, her craving was mostly psychological wanting to actually smoke. September, SN cut a straw to about 4 inches and let the pt have it to use as a placebo and it worked amazingly. Will continue to monitor.
--- NOTE | 2019-04-04 18:31 | NUR ---
Student documentation: I have reviewed and agree with all interventions, assessments performed and documented by Melodie Faust.
[2019-04-04] MEDS: normal saline 1000ml 1,000 ML IV SCH (18:42)
[2019-04-04 22:00] VITALS: BP 111/63
[2019-04-05 02:00] VITALS: BP 99/61
[2019-04-05] MEDS: ipratropium/albuterol 3ml nebule NEB SCH ×4 (03:12→14:03)
[2019-04-05 03:50] LABS: BASOPHILS % (AUTO) 0.1 % (0-1); EOSINOPHILS % (AUTO) 0.1 % (0-6); HEMATOCRIT 27.8 % (35.0-45.0); HEMOGLOBIN 9.5 g/dl (12.0-16.0); LYMPHOCYTES % (AUTO) 46.1 % (21-51); MEAN CORPUSCULAR HEMOGLOBIN 28.3 PG (27.0-31.0); MEAN CORPUSCULAR HGB CONC 34.2 g/dL (33.0-36.5); MEAN CORPUSCULAR VOLUME 82.6 FL (78-98); MEAN PLATELET VOLUME 7.8 FL (7.4-10.4); MONOCYTES # (AUTO) 0.7 X10'3 (0-0.9); MONOCYTES % (AUTO) 15.2 % (2-12); NEUTROPHILS # (AUTO) 1.7 X10'3 (1.8-7.7); NEUTROPHILS % (AUTO) 38.5 % (42-75); PLATELET COUNT 150 X10'3 (140-440); RED BLOOD COUNT 3.37 X10'6 (4.20-5.60); RED CELL DISTRIBUTION WIDTH 16.2 % (11.5-14.5); WHITE BLOOD COUNT 4.4 X10'3 (4.5-11.0)
[2019-04-05 04:03] LABS: ALANINE AMINOTRANSFERASE 209 U/L (12-78); ALBUMIN 1.8 G/DL (3.4-5.0); ALBUMIN/GLOBULIN RATIO 0.4 (1.1-1.5); ALKALINE PHOSPHATASE 156 IU/L (46-116); ANION GAP 7 (8-16); ASPARTATE AMINO TRANSFERASE 299 U/L (10-37); BILIRUBIN,TOTAL 2.2 MG/DL (0.1-1.0); BLOOD UREA NITROGEN 5 MG/DL (7-18); BUN/CREATININE RATIO 6.9 (6.6-38.0); CALCIUM 7.7 MG/DL (8.5-10.1); CHLORIDE 104 MMOL/L (99-107); CREATININE 0.72 MG/DL (0.40-0.90); MAGNESIUM 1.4 MG/DL (1.5-2.4); PHOSPHORUS 3.1 MG/DL (2.3-4.5); POTASSIUM 4.3 MMOL/L (3.5-5.1); SODIUM 138 MMOL/L (135-145); TOTAL CARBON DIOXIDE 27.2 MMOL/L (24-32); TOTAL PROTEIN 6.4 G/DL (6.4-8.2); eGFR 83 ML/MIN
[2019-04-05 04:04] LABS: GLUCOSE 97 MG/DL (70-104)
[2019-04-05 04:17] LABS: ANISOCYTOSIS 1+; PLATELET ESTIMATE NORMAL; TOTAL CELLS COUNTED 100
[2019-04-05] MEDS: HYDROcodone/acetaminophen 10/325mg tab PO PRN (04:59)
--- NOTE | 2019-04-05 05:04 | NUR ---
Pt agitated and restless. The pt got out of bed stating that she has to leave, and was unintentionally tugging on her PICC line. June was called for an order of ativan, however she said that the last time the pt received ativan, she could not wake up for an extended period of time. The pt stated she had a pain level of 8/10, and was given a norco; the notion of a pain pill appeased the pt to an extent. The pt is craving a cigarette. She has a nicotine patch on, which she stated that she removed, although it is still there. Once again the pt was given a straw for placebo effect, but it had less of a desirable effect as last time. She is now calm in bed, asking for a plywood factory worker.
[2019-04-05 06:00] VITALS: BP 92/60
--- NOTE | 2019-04-05 06:00 | NUR ---
Patient in room PCU 3019. I have received report from Janis JOHNSON and had the opportunity to ask questions and assume patient care.
--- NOTE | 2019-04-05 06:29 | NUR ---
Problems reprioritized. Patient report given, questions answered & plan of care reviewed with ELIZABETH Weaver.
[2019-04-05] MEDS: heparin, porcine 5000 units/ml vial SQ SCH (08:00)
--- NOTE | 2019-04-05 08:00 | NUR ---
Patient aggitated and trying to leave, combative, code hamilton called. Voicemail left for Dr Ward describing situation. Awaiting call back.
--- NOTE | 2019-04-05 08:30 | NUR ---
No call back from Dr Ward regarding patient agitation. Patient calming down now.
[2019-04-05] MEDS: lactulose 20gm/30ml cup PO SCH ×2 (08:49→13:40)
[2019-04-05] MEDS: venlafaxine XR 75mg capsule (Q24H) PO SCH (08:49)
[2019-04-05] MEDS: POTASSIUM BICARBONATE/CIT AC 10 MEQ TABLET.EFF PO SCH (08:49)
[2019-04-05] MEDS: atorvastatin 20mg tablet PO SCH (08:50)
[2019-04-05] MEDS: amitriptyline 25mg tablet PO SCH (08:50)
[2019-04-05] MEDS: oxybutynin 5mg tablet PO SCH (08:50)
[2019-04-05] MEDS: metoclopramide 10mg tablet PO SCH (08:50)
[2019-04-05] MEDS: estradiol 1mg tablet PO SCH (08:50)
[2019-04-05] MEDS: lactobacillus rhamnosus 10,000 MMU CELLS/CAPSULE PO SCH (08:50)
[2019-04-05] MEDS: pantoprazole 40mg Tablet.DR PO SCH (08:51)
[2019-04-05] MEDS: methadone 10mg tablet PO SCH (08:51)
[2019-04-05] MEDS: nicotine 21mg patch - 24 hr TD SCH (08:52)
[2019-04-05] MEDS: cefepime 1GM/NS ADD-VANTAGE 100 ML IV SCH (08:53)
[2019-04-05 11:00] VITALS: BP 101/62
--- NOTE | 2019-04-05 11:06 | NUR ---
Student documentation: I have reviewed interventions, assessments performed and documented by Jenni STEWART [facility].
--- NOTE | 2019-04-05 12:47 | NUR ---
Call placed to Dr Ward, voicemail left. Patient pulled out PICC to right upper arm, tip intact. Requested to leave IV out and DC all IV medications.
--- NOTE | 2019-04-05 14:17 | NUR ---
PT AGAIN THREATENING THE PHYSICAL SAFETY OF PCT SITTER. SHE IS DEMANDING TO LEAVE. THIS A.M I ASKED PEDRITO GATES IF THAT WOULD BE OK. KODY STATED THAT PT COULD LEAVE AMA IF SHE WANTED. PT HAS NO "HOLD" PLACED ON HER. I HAVE LEFT MESSAGE WITH DR MONTANO. HE HAS NOT HAD THE OPPORTUNITY TO CALL ME BACK. I HAVE CONTACTED CASE MANAGEMENT ROHIT AND SHE HAS AGREED WITH S.S THAT PT CAN LEAVE A.M.A . I INFORMED MOTION PICTURE PROJECTIONIST OF THESE EVENTS. PT SIGNED AMA PAPER. HOME MEDS GIVEN BACK TO PT FROM PHARMACY. PT STATES SHE HAS A RIDE HOME. Addendum: 04/05/19 at 1605 by Jaz Gomes RN THIS AM I SPOKE TO [place] CASE MANAGEMENT MARITZA GATES
--- NOTE | 2019-04-05 14:20 | NUR ---
Picked up patient's meds from pharmacy, including 14 1/2 [place] tabs. Medications given to patient, showed patient that there are 14 1/2 tabs in the bottle, pt verifies that there are 14.
--- NOTE | 2019-04-05 14:45 | NUR ---
Pt left AMA, off unit with 4 bags of personal belongings including home medications. Pt escorted to lobby by staff.
== END 2019-04-05 15:03 | disposition left against medical advice (07) | DRG 425 ==
LOC: ER 04:22 → ED HOLD 09:40 → ICU 2S 12:33 → CICU 2S 03-31 17:23 → PCU 3S 04-01 18:05
PROVIDERS: ADMIT Internal Medicine Critical Care Medicine; ATTEND Internal Medicine Critical Care Medicine
PROC: 02HV33Z Insertion of Infusion Device into Superior Vena Cava, Percutaneous Approach (ICD-10-PCS; principal; 2019-03-29)
PROC: B548ZZA Ultrasonography of Superior Vena Cava, Guidance (ICD-10-PCS; 2019-03-29)
DX: E87.6 Hypokalemia (principal); G93.41 Metabolic encephalopathy; J18.1 Lobar pneumonia, unspecified organism; E72.20 Disorder of urea cycle metabolism, unspecified; B16.9 Acute hepatitis B without delta-agent and without hepatic coma; J44.0 Chronic obstructive pulmonary disease with (acute) lower respiratory infection; N30.90 Cystitis, unspecified without hematuria; B96.20 Unspecified Escherichia coli [E. coli] as the cause of diseases classified elsewhere; E78.00 Pure hypercholesterolemia, unspecified; Z53.29 Procedure and treatment not carried out because of patient's decision for other reasons; F32.9 Major depressive disorder, single episode, unspecified; G89.29 Other chronic pain; E78.5 Hyperlipidemia, unspecified; F12.90 Cannabis use, unspecified, uncomplicated; K21.9 Gastro-esophageal reflux disease without esophagitis; F17.210 Nicotine dependence, cigarettes, uncomplicated; Z90.49 Acquired absence of other specified parts of digestive tract; Z90.710 Acquired absence of both cervix and uterus; Z88.0 Allergy status to penicillin; Z79.899 Other long term (current) drug therapy
CPT/HCPCS: 36415; 36569; 70450; 71045; 74018; 76700; 76937; 80047; 80048; 80053; 81001; 82140; 82810; 82948; 83605; 83735; 84100; 84132; 84145; 84443; 84484; 85025; 85610; 85730; 86705; 86706; 86709; 86803; 87040; 87077; 87081; 87088; 87186; 87340; 92508; 92616; 93005; 94640; 94760; 96365; 96366; 96368; 96376; 97110; 97116; 97161; 97530; 99291; G0378; J0456; J0692; J0696; J1644; J2060; J2270; J2405; J3475; J3480; J7030; J7060; J8597